=== PATIENT | male | born 1955 | race Caucasian/White ===

== ENCOUNTER 2019-07-08 09:50 | Emergency (ER) | payer OTHER ==
[~2019-07-08] VITALS: Ht 182.9 cm; Wt 75.4 kg
[2019-07-08] MEDS ORDERED: normal saline 1000ML IV soln IVB ONE (10:35)
[2019-07-08] MEDS ORDERED: ondansetron/PF 4mg/2ml inj IV ONE (10:35)
[2019-07-08] MEDS: morphine 4 MG/ML inj SYRINge IV PRN ×2 (10:43→13:39)
[2019-07-08 11:21] LABS: BASOPHILS % (AUTO) 0.1 % (0-1); EOSINOPHILS % (AUTO) 0 % (0-6); HEMATOCRIT 39.9 % (42.0-52.0); HEMOGLOBIN 13.5 g/dl (14.0-17.9); LYMPHOCYTES # (AUTO) 1.1 X10'3 (1.1-4.8); LYMPHOCYTES % (AUTO) 11.4 % (21-51); MEAN CORPUSCULAR HEMOGLOBIN 30.1 PG (27.0-31.0); MEAN CORPUSCULAR HGB CONC 33.8 g/dL (33.0-36.5); MEAN CORPUSCULAR VOLUME 88.9 FL (78-98); MEAN PLATELET VOLUME 8.2 FL (7.4-10.4); MONOCYTES # (AUTO) 1.4 X10'3 (0-0.9); NEUTROPHILS # (AUTO) 7.4 X10'3 (1.8-7.7); NEUTROPHILS % (AUTO) 74.5 % (42-75); PLATELET COUNT 208 X10'3 (140-440); RED BLOOD COUNT 4.49 X10'6 (4.70-6.10); RED CELL DISTRIBUTION WIDTH 15.5 % (11.5-14.5); WHITE BLOOD COUNT 9.9 X10'3 (4.5-11.0)
[2019-07-08 11:33] LABS: ALANINE AMINOTRANSFERASE 110 U/L (12-78); ALBUMIN 3.5 G/DL (3.4-5.0); ALBUMIN/GLOBULIN RATIO 1.1 (1.1-1.5); ALKALINE PHOSPHATASE 79 IU/L (46-116); ANION GAP 11 (8-16); ASPARTATE AMINO TRANSFERASE 83 U/L (10-37); BLOOD UREA NITROGEN 59 MG/DL (7-18); BUN/CREATININE RATIO 34.1 (5.4-32.0); CALCIUM 7.9 MG/DL (8.5-10.1); CHLORIDE 98 MMOL/L (99-107); CREATININE 1.73 MG/DL (0.60-1.10); GLUCOSE 114 MG/DL (70-104); LIPASE 137 U/L (73-393); POTASSIUM 3.1 MMOL/L (3.5-5.1); SODIUM 138 MMOL/L (135-145); TOTAL CARBON DIOXIDE 28.9 MMOL/L (24-32); TOTAL PROTEIN 6.7 G/DL (6.4-8.2); eGFR 40 ML/MIN
[2019-07-08 12:51] LABS: CLARITY,URINE CLEAR (Clear); COLOR,URINE YELLOW (Yellow); GLUCOSE, URINE NEGATIVE (Neg); KETONES,URINE 15 mg/dl (Neg); LEUKOCYTE ESTERASE ,URINE NEGATIVE (Neg); NITRITES, URINE NEGATIVE (Neg); OCCULT BLOOD,URINE NEGATIVE (Neg); PROTEIN,URINE NEGATIVE (Neg)
--- NOTE | 2019-07-08 12:51 | NUR ---
GUY: [phone] (SON)
[2019-07-08 12:54] LABS: UA COLLECTION TYPE URINAL
[2019-07-08 12:56] VITALS: BP 106/64
[2019-07-08] MEDS ORDERED: PANT-47 PO (13:44)
[2019-07-08] MEDS ORDERED: SUCR1TAB34 PO (13:44)
== END 2019-07-08 15:13 | disposition home or self-care (01) ==
LOC: ER 09:51
DX: K44.9 Diaphragmatic hernia without obstruction or gangrene (principal); I71.4 Abdominal aortic aneurysm, without rupture; N17.9 Acute kidney failure, unspecified; E87.6 Hypokalemia; F17.200 Nicotine dependence, unspecified, uncomplicated; Z79.899 Other long term (current) drug therapy
CPT/HCPCS: 36415; 74176; 76700; 80053; 81003; 83690; 85025; 96374; 96375; 96376; 99285; J2270; J2405; J7030

== ENCOUNTER 2019-10-13 13:00 | Emergency (ER) | payer OTHER ==
[~2019-10-13] VITALS: Ht 182.9 cm; Wt 90.0 kg
[~2019-10-13 13:00] MED LIST: PANT-47 PO; SUCR1TAB34 PO
[2019-10-13] MEDS ORDERED: magnesium oxide 400mg tablet PO ONE (13:20)
[2019-10-13] MEDS ORDERED: normal saline 1000ML IV soln IVB ONE (13:20)
[2019-10-13] MEDS ORDERED: thiamine 100mg tablet PO ONE (13:20)
[2019-10-13] MEDS ORDERED: phenobarbital inj 260 MG in normal saline 100ml IV soln 100 ML IV ONE (13:20)
[2019-10-13 13:39] LABS: BASOPHILS % (AUTO) 0.5 % (0-1); EOSINOPHILS # (AUTO) 0.1 X10'3 (0-0.9); EOSINOPHILS % (AUTO) 0.8 % (0-6); HEMATOCRIT 43.5 % (42.0-52.0); HEMOGLOBIN 14.2 g/dl (14.0-17.9); LYMPHOCYTES # (AUTO) 2.6 X10'3 (1.1-4.8); LYMPHOCYTES % (AUTO) 40.7 % (21-51); MEAN CORPUSCULAR HEMOGLOBIN 30.7 PG (27.0-31.0); MEAN CORPUSCULAR HGB CONC 32.7 g/dL (33.0-36.5); MEAN PLATELET VOLUME 7.4 FL (7.4-10.4); MONOCYTES # (AUTO) 0.9 X10'3 (0-0.9); MONOCYTES % (AUTO) 13.2 % (2-12); NEUTROPHILS # (AUTO) 2.9 X10'3 (1.8-7.7); NEUTROPHILS % (AUTO) 44.8 % (42-75); PLATELET COUNT 255 X10'3 (140-440); RED BLOOD COUNT 4.63 X10'6 (4.70-6.10); RED CELL DISTRIBUTION WIDTH 15.8 % (11.5-14.5); WHITE BLOOD COUNT 6.5 X10'3 (4.5-11.0)
[2019-10-13 13:53] LABS: ALANINE AMINOTRANSFERASE 80 U/L (12-78); ALBUMIN 3.5 G/DL (3.4-5.0); ALBUMIN/GLOBULIN RATIO 0.9 (1.1-1.5); ALKALINE PHOSPHATASE 81 IU/L (46-116); ANION GAP 8 (8-16); ASPARTATE AMINO TRANSFERASE 60 U/L (10-37); BILIRUBIN,TOTAL 0.2 MG/DL (0.1-1.0); BLOOD UREA NITROGEN 11 MG/DL (7-18); BUN/CREATININE RATIO 14.3 (5.4-32.0); CALCIUM 8.3 MG/DL (8.5-10.1); CHLORIDE 111 MMOL/L (99-107); CREATININE 0.77 MG/DL (0.60-1.10); GLUCOSE 105 MG/DL (70-104); SODIUM 147 MMOL/L (135-145); TOTAL CARBON DIOXIDE 28.1 MMOL/L (24-32); TOTAL PROTEIN 7.6 G/DL (6.4-8.2); eGFR > 90 ML/MIN
[2019-10-13 13:56] LABS: MAGNESIUM 2.1 MG/DL (1.5-2.4)
[2019-10-13 13:57] LABS: ETHANOL 0.356 GM/DL (0.0-0.010); POTASSIUM 3.8 MMOL/L (3.5-5.1)
[2019-10-13 14:12] LABS: LIPASE 167 U/L (73-393)
--- NOTE | 2019-10-13 15:16 | NUR ---
[facility] for Toradol received.
[2019-10-13] MEDS ORDERED: ketorolac trometh. 30mg/ml inj. IV ONE (18:25)
[2019-10-13 19:21] VITALS: BP 133/90
== END 2019-10-13 19:13 | disposition home or self-care (01) ==
LOC: ER 13:00
DX: F10.129 Alcohol abuse with intoxication, unspecified (principal); T75.89XA Other specified effects of external causes, initial encounter; Z59.0 Homelessness; Z79.899 Other long term (current) drug therapy; X58.XXXA Exposure to other specified factors, initial encounter; Y93.89 Activity, other specified; Y92.89 Other specified places as the place of occurrence of the external cause; Y99.8 Other external cause status; Y90.0 Blood alcohol level of less than 20 mg/100 ml
CPT/HCPCS: 36415; 80053; 80320; 82948; 83690; 83735; 85025; 93005; 96365; 96375; 99284; J1885; J2560; J7030

== ENCOUNTER 2019-12-07 04:31 | Emergency (ER) | payer OTHER ==
[~2019-12-07] VITALS: Ht 185.4 cm; Wt 86.4 kg
[2019-12-07 05:02] LABS: BASOPHILS % (AUTO) 0.4 % (0-1); EOSINOPHILS % (AUTO) 0.3 % (0-6); HEMATOCRIT 41.8 % (42.0-52.0); HEMOGLOBIN 13.8 g/dl (14.0-17.9); LYMPHOCYTES # (AUTO) 1.9 X10'3 (1.1-4.8); LYMPHOCYTES % (AUTO) 28.7 % (21-51); MEAN CORPUSCULAR HEMOGLOBIN 30.8 PG (27.0-31.0); MEAN CORPUSCULAR VOLUME 93.4 FL (78-98); MEAN PLATELET VOLUME 8.2 FL (7.4-10.4); MONOCYTES # (AUTO) 0.7 X10'3 (0-0.9); MONOCYTES % (AUTO) 11.2 % (2-12); NEUTROPHILS # (AUTO) 3.9 X10'3 (1.8-7.7); NEUTROPHILS % (AUTO) 59.4 % (42-75); PLATELET COUNT 188 X10'3 (140-440); RED BLOOD COUNT 4.48 X10'6 (4.70-6.10); RED CELL DISTRIBUTION WIDTH 13.2 % (11.5-14.5); WHITE BLOOD COUNT 6.6 X10'3 (4.5-11.0)
[2019-12-07 05:26] LABS: ALANINE AMINOTRANSFERASE 201 U/L (12-78); ALBUMIN 3.6 G/DL (3.4-5.0); ALKALINE PHOSPHATASE 94 IU/L (46-116); ANION GAP 16 (8-16); ASPARTATE AMINO TRANSFERASE 176 U/L (10-37); BILIRUBIN,TOTAL 1.8 MG/DL (0.1-1.0); BLOOD UREA NITROGEN 15 MG/DL (7-18); BUN/CREATININE RATIO 13.6 (5.4-32.0); CALCIUM 8.3 MG/DL (8.5-10.1); CHLORIDE 102 MMOL/L (99-107); GLUCOSE 110 MG/DL (70-104); LIPASE 106 U/L (73-393); POTASSIUM 3.3 MMOL/L (3.5-5.1); SODIUM 139 MMOL/L (135-145); TOTAL CARBON DIOXIDE 20.9 MMOL/L (24-32); TOTAL PROTEIN 7.2 G/DL (6.4-8.2); eGFR 68 ML/MIN
[2019-12-07] MEDS ORDERED: glycopyrrolate 0.2mg/ml inj IV ONE (05:30)
[2019-12-07] MEDS ORDERED: diphenhydrAMINE 50 mg/ml inj IV ONE (05:30)
[2019-12-07] MEDS ORDERED: metoclopramide 5 mg/ml inj IV ONE (05:30)
[2019-12-07] MEDS ORDERED: LORazepam 2 mg/ml vial IV ONE (05:30)
[2019-12-07] MEDS ORDERED: normal saline 1000ML IV soln IVB ONE (05:30)
[2019-12-07] MEDS ORDERED: LOPE-144 PO (05:43)
[2019-12-07] MEDS ORDERED: ONDA4TAB12 PO (05:43)
[2019-12-07] MEDS ORDERED: DICY10CA88 PO (05:43)
[2019-12-07] MEDS ORDERED: iohexol 300mg/ml 100ml inj. ONE (06:07)
[2019-12-07 06:50] VITALS: BP 106/57
== END 2019-12-07 07:52 | disposition home or self-care (01) ==
LOC: ER 04:32
DX: R51 Headache (principal); I71.4 Abdominal aortic aneurysm, without rupture; R10.9 Unspecified abdominal pain; R11.10 Vomiting, unspecified; R19.7 Diarrhea, unspecified; F10.10 Alcohol abuse, uncomplicated; Z79.899 Other long term (current) drug therapy
CPT/HCPCS: 36415; 74177; 80053; 83690; 85025; 96374; 96375; 99285; J1200; J2060; J2765; J7030; Q9967; J3490

== ENCOUNTER 2022-06-06 14:30 | Emergency (ER) | payer OTHER ==
[~2022-06-06] VITALS: Ht 182.9 cm; Wt 81.8 kg
[~2022-06-06 14:30] MED LIST changes: +LOPE-144 PO; +ONDA4TAB12 PO
--- NOTE | 2022-06-06 15:16 | NUR ---
Met with patient in regards to alcohol use and to see if patient wanted any resources for treatment options. Patient has an appointment with Kisha tomorrow at 9:00am. Patient is here for medical clearance to get medication to help him with withdrawls.
--- NOTE | 2022-06-06 15:44 | NUR ---
Donnell complaining of wound to his nose x 4 months. Patient states, "It's from a dog. It hasnt gone away".
[2022-06-06] MEDS ORDERED: LORazepam 1 MG tablet PO ONE (16:15)
[2022-06-06] MEDS ORDERED: ondansetron 4mg rapidly disintigrating tab PO ONE (16:15)
[2022-06-06] MEDS ORDERED: normal saline 1000ML IV soln IVB ONE (16:15)
--- NOTE | 2022-06-06 16:23 | NUR ---
Cooper/ Friend [phone]
[2022-06-06 16:52] LABS: BASOPHILS % (AUTO) 0.3 % (0-1); EOSINOPHILS % (AUTO) 0 % (0-6); HEMATOCRIT 40.5 % (42.0-52.0); HEMOGLOBIN 13.3 g/dl (14.0-17.9); LYMPHOCYTES # (AUTO) 0.5 X10'3 (1.1-4.8); LYMPHOCYTES % (AUTO) 4.2 % (21-51); MEAN CORPUSCULAR HGB CONC 32.8 g/dL (33.0-36.5); MEAN CORPUSCULAR VOLUME 88.3 FL (78-98); MEAN PLATELET VOLUME 7.7 FL (7.4-10.4); MONOCYTES # (AUTO) 0.5 X10'3 (0-0.9); MONOCYTES % (AUTO) 4.1 % (2-12); NEUTROPHILS # (AUTO) 11.5 X10'3 (1.8-7.7); NEUTROPHILS % (AUTO) 91.4 % (42-75); PLATELET COUNT 159 X10'3 (140-440); RED BLOOD COUNT 4.59 X10'6 (4.70-6.10); RED CELL DISTRIBUTION WIDTH 14.2 % (11.5-14.5); WHITE BLOOD COUNT 12.6 X10'3 (4.5-11.0)
[2022-06-06] MEDS ORDERED: GABA300C PO ×3 (16:58→19:18)
[2022-06-06 17:07] LABS: ALANINE AMINOTRANSFERASE 62 U/L (12-78); ALBUMIN 3.6 G/DL (3.4-5.0); ALBUMIN/GLOBULIN RATIO 1.1 (1.1-1.5); ALKALINE PHOSPHATASE 128 IU/L (46-116); ANION GAP 13 (8-16); ASPARTATE AMINO TRANSFERASE 87 U/L (10-37); BILIRUBIN,TOTAL 2.1 MG/DL (0.1-1.0); BLOOD UREA NITROGEN 22 MG/DL (7-18); BUN/CREATININE RATIO 18.8 (5.4-32.0); CALCIUM 8.2 MG/DL (8.5-10.1); CHLORIDE 96 MMOL/L (99-107); CREATININE 1.17 MG/DL (0.60-1.10); GLUCOSE 166 MG/DL (70-104); POTASSIUM 3.5 MMOL/L (3.5-5.1); SODIUM 137 MMOL/L (135-145); TOTAL CARBON DIOXIDE 27.8 MMOL/L (24-32); eGFR 63 ML/MIN
[2022-06-06 17:11] LABS: LIPASE 126 U/L (73-393)
[2022-06-06 17:45] LABS: GLUCOSE, URINE NEGATIVE (Neg); KETONES,URINE 40 mg/dl (Neg); LEUKOCYTE ESTERASE ,URINE NEGATIVE (Neg); NITRITES, URINE NEGATIVE (Neg); OCCULT BLOOD,URINE NEGATIVE (Neg); PROTEIN,URINE 30 mg/dl (Neg)
[2022-06-06 17:51] LABS: COLOR,URINE DARK YELLOW (Yellow); UA COLLECTION TYPE URINAL
[2022-06-06 17:52] LABS: CLARITY,URINE SLIGHTLY CLOUDY (Clear)
[2022-06-06 17:55] LABS: WBC,URINE 0-4 /HPF (0-4)
[2022-06-06 17:56] LABS: BACTERIA,URINE FEW /HPF (Neg); FINE GRANULAR CAST 0-3 /LPF (NEGATIVE); MUCUS STRANDS FEW /LPF (Neg); SQUAMOUS EPITHELIAL CELL,UR FEW /LPF (FEW)
[2022-06-06 18:02] LABS: URINE AMPHETAMINE SCREEN NEGATIVE (Neg); URINE BARBITUATE SCREEN NEGATIVE (Neg); URINE BENZODIAZEPINES SCREEN NEGATIVE (Neg); URINE CANNABINOID SCREEN POSITIVE (Neg); URINE COCAINE SCREEN NEGATIVE (Neg); URINE METHADONE SCREEN NEGATIVE (Neg); URINE OPIATE SCREEN NEGATIVE (Neg); URINE PHENCYCLIDINE SCREEN NEGATIVE (Neg)
[2022-06-06 18:55] VITALS: BP 146/76
== END 2022-06-06 19:22 | disposition home or self-care (01) ==
LOC: ER 14:31
DX: F10.239 Alcohol dependence with withdrawal, unspecified (principal); M54.50 Low back pain, unspecified; F10.21 Alcohol dependence, in remission; Y90.9 Presence of alcohol in blood, level not specified
CPT/HCPCS: 36415; 72100; 80053; 80305; 81001; 83690; 84484; 85025; 93005; 99285; J7030

== ENCOUNTER 2024-06-23 15:00 | Inpatient (IN) | payer OTHER, MEDICARE ==
[~2024-06-23] VITALS: Ht 182.9 cm; Wt 83.9 kg
[~2024-06-23 15:00] MED LIST changes: +AMIT50TA3 PO; -LOPE-144 PO; -ONDA4TAB12 PO; -PANT-47 PO; -SUCR1TAB34 PO
[2024-06-23 23:00] VITALS: BP 134/64; PULSE 85; O2SAT 96
[2024-06-24] VITALS (13 sets, daily range): BP systolic 119–155; BP diastolic 63–86; PULSE 75–91; RESP 13–26; TEMP 97.6–100.7; O2SAT 95–98
[2024-06-24] MEDS: amitriptyline 50mg tablet PO SCH (03:06)
[2024-06-24 04:27] LABS: BASOPHILS % (AUTO) 0.2 % (0-1); EOSINOPHILS % (AUTO) 0.2 % (0-6); HEMATOCRIT 34.5 % (42.0-52.0); HEMOGLOBIN 11.2 g/dl (14.0-17.9); LYMPHOCYTES # (AUTO) 1.9 X10'3 (1.1-4.8); LYMPHOCYTES % (AUTO) 12.5 % (21-51); MEAN CORPUSCULAR HEMOGLOBIN 27.6 PG (27.0-31.0); MEAN CORPUSCULAR HGB CONC 32.6 g/dL (33.0-36.5); MEAN CORPUSCULAR VOLUME 84.7 FL (78-98); MEAN PLATELET VOLUME 8.5 FL (7.4-10.4); MONOCYTES # (AUTO) 1.2 X10'3 (0-0.9); MONOCYTES % (AUTO) 7.8 % (2-12); NEUTROPHILS # (AUTO) 11.9 X10'3 (1.8-7.7); NEUTROPHILS % (AUTO) 79.3 % (42-75); PLATELET COUNT 372 X10'3 (140-440); RED BLOOD COUNT 4.08 X10'6 (4.70-6.10); RED CELL DISTRIBUTION WIDTH 13.7 % (11.5-14.5)
[2024-06-24 04:40] LABS: ALANINE AMINOTRANSFERASE 53 U/L (12-78); ALBUMIN 2.6 G/DL (3.4-5.0); ALBUMIN/GLOBULIN RATIO 0.7 (1.1-1.5); ALKALINE PHOSPHATASE 158 IU/L (46-116); ANION GAP 6 (8-16); ASPARTATE AMINO TRANSFERASE 28 U/L (10-37); BILIRUBIN,TOTAL 0.4 MG/DL (0.1-1.0); BLOOD UREA NITROGEN 20 MG/DL (7-18); CHLORIDE 100 MMOL/L (99-107); CREATININE 0.91 MG/DL (0.60-1.10); GLUCOSE 129 MG/DL (70-104); POTASSIUM 3.6 MMOL/L (3.5-5.1); SODIUM 136 MMOL/L (135-145); TOTAL CARBON DIOXIDE 30.5 MMOL/L (24-32); TOTAL PROTEIN 6.4 G/DL (6.4-8.2); eCRCL 88 ML/MIN; eGFR 83 ML/MIN
[2024-06-24] MEDS ORDERED: ASPI-920 PO (08:38)
[2024-06-24] MEDS ORDERED: FOLI1TAB27 PO (08:38)
[2024-06-24] MEDS ORDERED: AMLO10TA PO (08:38)
[2024-06-24] MEDS ORDERED: ENOX40DI8 SUBCUT (08:38)
[2024-06-24] MEDS ORDERED: ATOR20TA66 PO (08:38)
[2024-06-24] MEDS ORDERED: INSU100V46 SQ ×3 (08:43→09:12)
[2024-06-24] MEDS ORDERED: HYDR12.55 PO (08:43)
[2024-06-24] MEDS ORDERED: GABA-530 PO (08:43)
[2024-06-24] MEDS ORDERED: [UNRECOGNIZED DRUG - CODE] PO (08:50)
[2024-06-24] MEDS ORDERED: LABE100T8 PO (08:50)
[2024-06-24] MEDS ORDERED: LISI40TA13 PO (08:50)
[2024-06-24] MEDS ORDERED: NICO-687 TD (08:50)
[2024-06-24] MEDS ORDERED: MELA5CAP PO (08:50)
[2024-06-24] MEDS ORDERED: PANT40SU2 PO (08:50)
[2024-06-24] MEDS ORDERED: SENN-360 PO (08:57)
[2024-06-24] MEDS ORDERED: THIA50TA10 PO (08:57)
[2024-06-24] MEDS ORDERED: PANT40VI2 IV (08:57)
[2024-06-24] MEDS ORDERED: BISA10SU60 RC (09:12)
[2024-06-24] MEDS ORDERED: LABE5VIA IV (09:12)
[2024-06-24] MEDS ORDERED: ONDA-103 PO (09:12)
[2024-06-24] MEDS ORDERED: ACET-1131 PO (09:12)
[2024-06-24] MEDS ORDERED: CARB15DR EACHEYE (09:12)
[2024-06-24] MEDS ORDERED: IPRA3AMP31 IH (09:12)
[2024-06-24] MEDS ORDERED: NICO-668 MM (09:12)
[2024-06-24] MEDS ORDERED: ondansetron/PF 4mg/2ml inj IV PRN ×2 (09:50→19:35)
[2024-06-24] MEDS ORDERED: magnesium sulf-water 2g/50mL 50 ML IV PRN ×2 (09:50→19:35)
[2024-06-24] MEDS ORDERED: acetaminophen 325mg tablet PO PRN ×2 (09:50→19:35)
[2024-06-24] MEDS ORDERED: potassium Cl 20 mEq SR tablet PO PRN ×4 (09:50→19:35)
[2024-06-24] MEDS ORDERED: magnesium Cl slow-release 64mg tablet PO PRN ×2 (09:50→19:35)
[2024-06-24] MEDS ORDERED: magnesium hydroxide 30ml (MOM) UD suspension PO PRN ×2 (09:50→19:35)
[2024-06-24] MEDS ORDERED: potassium Cl 40MEQ/1/2NS 520ml 520 ML IV PRN ×2 (09:50→19:35)
[2024-06-24] MEDS ORDERED: magnesium sulf-water 4G/100mL 100 ML IV PRN ×2 (09:50→19:35)
[2024-06-24] MEDS: acetaminophen 325mg tablet PO PRN (17:09)
[2024-06-24] MEDS ORDERED: mag hydrox/Alum hydrox/simeth 30ml oral suspension PO PRN (19:35)
[2024-06-24] MEDS ORDERED: morphine 2 MG/ML inj. syringe IV PRN (19:35)
[2024-06-24] MEDS ORDERED: NICOTINE POLACRILEX 2 MG LOZENGE BC PRN (19:40)
[2024-06-24] MEDS ORDERED: K and/or MAG REPLACEMENT MC SCH (20:00)
[2024-06-24] MEDS ORDERED: heparin, porcine 5000 units/ml vial SQ SCH (20:00)
[2024-06-24] MEDS: K and/or MAG REPLACEMENT MC SCH (20:00)
[2024-06-24 20:36] LABS: HEMOGLOBIN A1C 6.1 % (4.5-6.2)
[2024-06-24] MEDS ORDERED: amitriptyline 50mg tablet PO SCH (21:00)
[2024-06-24] MEDS: Melatonin 3mg tablet PO SCH (21:20)
[2024-06-24] MEDS: gabapentin 100mg capsule PO SCH (21:21)
[2024-06-24] MEDS: labetalol 100mg tablet PO SCH (21:21)
[2024-06-24] MEDS: docusate sod 100mg capsule PO SCH (21:22)
[2024-06-25 06:00] VITALS: BP 108/55; PULSE 79; RESP 12; TEMP 99; O2SAT 94
[2024-06-25 07:43] LABS: BASOPHILS % (AUTO) 0.1 % (0-1); EOSINOPHILS # (AUTO) 0.1 X10'3 (0-0.9); EOSINOPHILS % (AUTO) 0.4 % (0-6); HEMOGLOBIN 10.5 g/dl (14.0-17.9); LYMPHOCYTES % (AUTO) 5.6 % (21-51); MEAN CORPUSCULAR HEMOGLOBIN 27.8 PG (27.0-31.0); MEAN CORPUSCULAR HGB CONC 32.7 g/dL (33.0-36.5); MEAN PLATELET VOLUME 8.8 FL (7.4-10.4); MONOCYTES # (AUTO) 1.7 X10'3 (0-0.9); MONOCYTES % (AUTO) 9.6 % (2-12); NEUTROPHILS # (AUTO) 14.6 X10'3 (1.8-7.7); NEUTROPHILS % (AUTO) 84.3 % (42-75); PLATELET COUNT 292 X10'3 (140-440); RED BLOOD COUNT 3.77 X10'6 (4.70-6.10); RED CELL DISTRIBUTION WIDTH 13.7 % (11.5-14.5); WHITE BLOOD COUNT 17.3 X10'3 (4.5-11.0)
[2024-06-25 08:00] VITALS: RESP 12; O2SAT 94
[2024-06-25 08:13] LABS: ALANINE AMINOTRANSFERASE 42 U/L (12-78); ALBUMIN 2.4 G/DL (3.4-5.0); ALBUMIN/GLOBULIN RATIO 0.7 (1.1-1.5); ALKALINE PHOSPHATASE 126 IU/L (46-116); ANION GAP 6 (8-16); ASPARTATE AMINO TRANSFERASE 25 U/L (10-37); BILIRUBIN,TOTAL 0.7 MG/DL (0.1-1.0); BLOOD UREA NITROGEN 13 MG/DL (7-18); BUN/CREATININE RATIO 14.1 (10.0-20.0); CALCIUM 7.8 MG/DL (8.5-10.1); CHLORIDE 101 MMOL/L (99-107); CREATININE 0.92 MG/DL (0.60-1.10); GLUCOSE 178 MG/DL (70-104); MAGNESIUM 1.7 MG/DL (1.5-2.4); POTASSIUM 3.7 MMOL/L (3.5-5.1); SODIUM 136 MMOL/L (135-145); TOTAL CARBON DIOXIDE 28.8 MMOL/L (24-32); TOTAL PROTEIN 5.9 G/DL (6.4-8.2); eCRCL 87 ML/MIN; eGFR 82 ML/MIN
[2024-06-25] MEDS: amLODIPine 5mg tablet PO SCH (08:56)
[2024-06-25] MEDS: lisinopril 20mg tablet PO SCH (08:57)
[2024-06-25] MEDS: atorvastatin 20mg tablet PO SCH (08:57)
[2024-06-25] MEDS: aspirin 81mg tab.chew PO SCH (08:58)
[2024-06-25] MEDS: HYDROchlorothiazide 12.5mg capsule PO SCH (08:58)
[2024-06-25] MEDS: multivitamins, therapeutics tablet PO SCH (08:58)
[2024-06-25] MEDS: folic acid 1mg tablet PO SCH (08:59)
[2024-06-25] MEDS: nicotine 21mg patch - 24 hr TD SCH (09:02)
[2024-06-25 10:00] VITALS: BP 132/51; PULSE 70; RESP 18; TEMP 97.5; O2SAT 99
[2024-06-25] MEDS: normal saline 1000ml 1,000 ML IV ONE (11:25)
[2024-06-25 12:39] LABS: BILIRUBIN,URINE NEGATIVE (Neg); CLARITY,URINE CLEAR (Clear); COLOR,URINE YELLOW (Yellow); GLUCOSE, URINE NEGATIVE (Neg); KETONES,URINE NEGATIVE (Neg); LEUKOCYTE ESTERASE ,URINE NEGATIVE (Neg); NITRITES, URINE NEGATIVE (Neg); OCCULT BLOOD,URINE NEGATIVE (Neg); PROTEIN,URINE NEGATIVE (Neg)
[2024-06-25 12:45] LABS: UA COLLECTION TYPE NON-SPECIFIED
[2024-06-25] MEDS: normal saline 1000ml 1,000 ML IVB ONE ×2 (13:09→15:31)
[2024-06-25 13:48] LABS: D-DIMER 3.89 MG/L FEU (0-0.50)
[2024-06-25] MEDS: CefTRIAXone/D5W-Rocephin 1gm 50 ML IV SCH (13:55)
[2024-06-25] MEDS: clindamycin 300mg/D5W 50mL 50 ML IV SCH (15:31)
[2024-06-25] MEDS ORDERED: iohexol 350MG/ML 100ml bottle IV ONE (16:32)
[2024-06-25] MEDS ORDERED: PERFLUTREN PROTEIN-A MICROSPHR (Optison) 0.22 MG/ML 3ML VIAL IV ONE (17:30)
[2024-06-25 18:00] VITALS: BP 120/56; PULSE 77; RESP 18; TEMP 99.3; O2SAT 93
[2024-06-25] MEDS ORDERED: atorvastatin 20mg tablet PO SCH (18:25)
[2024-06-25 20:00] VITALS: RESP 18; O2SAT 96
[2024-06-25 22:00] VITALS: BP 108/43; PULSE 70; RESP 16; TEMP 99.1; O2SAT 96
[2024-06-25] MEDS ORDERED: PERFLUTREN PROTEIN-A MICROSPHR (Optison) 0.22 MG/ML 3ML VIAL IV PRN (22:45)
[2024-06-26 05:02] LABS: BASOPHILS % (AUTO) 0.1 % (0-1); EOSINOPHILS # (AUTO) 0.2 X10'3 (0-0.9); EOSINOPHILS % (AUTO) 1.1 % (0-6); HEMATOCRIT 28.7 % (42.0-52.0); HEMOGLOBIN 9.3 g/dl (14.0-17.9); LYMPHOCYTES # (AUTO) 0.8 X10'3 (1.1-4.8); LYMPHOCYTES % (AUTO) 4.8 % (21-51); MEAN CORPUSCULAR HEMOGLOBIN 27.4 PG (27.0-31.0); MEAN CORPUSCULAR HGB CONC 32.4 g/dL (33.0-36.5); MEAN CORPUSCULAR VOLUME 84.7 FL (78-98); MEAN PLATELET VOLUME 8.8 FL (7.4-10.4); MONOCYTES # (AUTO) 1.8 X10'3 (0-0.9); MONOCYTES % (AUTO) 10.4 % (2-12); NEUTROPHILS # (AUTO) 14.4 X10'3 (1.8-7.7); NEUTROPHILS % (AUTO) 83.6 % (42-75); PLATELET COUNT 272 X10'3 (140-440); RED BLOOD COUNT 3.39 X10'6 (4.70-6.10); RED CELL DISTRIBUTION WIDTH 14.2 % (11.5-14.5); WHITE BLOOD COUNT 17.2 X10'3 (4.5-11.0)
[2024-06-26 05:21] LABS: ALANINE AMINOTRANSFERASE 34 U/L (12-78); ALBUMIN 2.2 G/DL (3.4-5.0); ALBUMIN/GLOBULIN RATIO 0.6 (1.1-1.5); ALKALINE PHOSPHATASE 112 IU/L (46-116); ANION GAP 5 (8-16); ASPARTATE AMINO TRANSFERASE 21 U/L (10-37); BILIRUBIN,TOTAL 0.6 MG/DL (0.1-1.0); BLOOD UREA NITROGEN 9 MG/DL (7-18); CALCIUM 7.7 MG/DL (8.5-10.1); CHLORIDE 104 MMOL/L (99-107); CREATININE 0.82 MG/DL (0.60-1.10); GLUCOSE 125 MG/DL (70-104); MAGNESIUM 1.7 MG/DL (1.5-2.4); POTASSIUM 4.1 MMOL/L (3.5-5.1); SODIUM 138 MMOL/L (135-145); TOTAL CARBON DIOXIDE 28.7 MMOL/L (24-32); TOTAL PROTEIN 5.8 G/DL (6.4-8.2); eCRCL 97 ML/MIN; eGFR > 90 ML/MIN
[2024-06-26 06:00] VITALS: BP 125/44; PULSE 72; RESP 16; TEMP 98.6; O2SAT 96
[2024-06-26 09:01] LABS: C-REACTIVE PROTEIN 15.81 MG/DL (0.0-0.5)
[2024-06-26 10:00] VITALS: BP 118/57; PULSE 78; RESP 14; TEMP 98.7; O2SAT 94
[2024-06-26 11:05] LABS: D-DIMER 3.01 MG/L FEU (0-0.50)
[2024-06-26 11:45] VITALS: RESP 18; O2SAT 96
[2024-06-26] MEDS: HYDROcodone/acetaminophen 5mg/325mg tablet PO PRN (14:59)
[2024-06-26 18:00] VITALS: BP 112/63; PULSE 76; RESP 18; TEMP 98.1; O2SAT 94
[2024-06-26 20:00] VITALS: RESP 18; O2SAT 95
[2024-06-26] MEDS: oxyCODONE SR 10mg (sust. release) tab PO SCH (20:28)
[2024-06-26 22:00] VITALS: BP 112/53; PULSE 73; RESP 18; TEMP 98; O2SAT 98
[2024-06-27 05:01] LABS: BASOPHILS % (AUTO) 0.2 % (0-1); EOSINOPHILS # (AUTO) 0.2 X10'3 (0-0.9); EOSINOPHILS % (AUTO) 1.3 % (0-6); HEMATOCRIT 26.2 % (42.0-52.0); HEMOGLOBIN 8.6 g/dl (14.0-17.9); LYMPHOCYTES # (AUTO) 1.3 X10'3 (1.1-4.8); LYMPHOCYTES % (AUTO) 9.3 % (21-51); MEAN CORPUSCULAR HEMOGLOBIN 27.6 PG (27.0-31.0); MEAN CORPUSCULAR HGB CONC 32.8 g/dL (33.0-36.5); MEAN CORPUSCULAR VOLUME 84.1 FL (78-98); MEAN PLATELET VOLUME 8.9 FL (7.4-10.4); MONOCYTES # (AUTO) 1.9 X10'3 (0-0.9); MONOCYTES % (AUTO) 14.3 % (2-12); NEUTROPHILS # (AUTO) 10.1 X10'3 (1.8-7.7); NEUTROPHILS % (AUTO) 74.9 % (42-75); PLATELET COUNT 273 X10'3 (140-440); RED BLOOD COUNT 3.11 X10'6 (4.70-6.10); RED CELL DISTRIBUTION WIDTH 14.2 % (11.5-14.5); WHITE BLOOD COUNT 13.5 X10'3 (4.5-11.0)
[2024-06-27 05:28] LABS: ALANINE AMINOTRANSFERASE 41 U/L (12-78); ALBUMIN 2.1 G/DL (3.4-5.0); ALBUMIN/GLOBULIN RATIO 0.5 (1.1-1.5); ALKALINE PHOSPHATASE 114 IU/L (46-116); ANION GAP 7 (8-16); ASPARTATE AMINO TRANSFERASE 26 U/L (10-37); BILIRUBIN,TOTAL 0.4 MG/DL (0.1-1.0); BLOOD UREA NITROGEN 11 MG/DL (7-18); BUN/CREATININE RATIO 11.3 (10.0-20.0); C-REACTIVE PROTEIN 18.58 MG/DL (0.0-0.5); CALCIUM 7.6 MG/DL (8.5-10.1); CHLORIDE 102 MMOL/L (99-107); CREATININE 0.97 MG/DL (0.60-1.10); GLUCOSE 137 MG/DL (70-104); MAGNESIUM 1.7 MG/DL (1.5-2.4); POTASSIUM 3.5 MMOL/L (3.5-5.1); SODIUM 137 MMOL/L (135-145); TOTAL CARBON DIOXIDE 28.5 MMOL/L (24-32); eCRCL 82 ML/MIN; eGFR 77 ML/MIN
[2024-06-27 06:00] VITALS: BP 107/51; PULSE 71; RESP 16; TEMP 98.9; O2SAT 99
[2024-06-27] MEDS ORDERED: CEPH250T PO (07:26)
[2024-06-27] MEDS ORDERED: LACT1CAP26 PO (10:42)
[2024-06-27] MEDS ORDERED: PANT40TA54 PO (10:48)
[2024-06-27] MEDS ORDERED: CLIN-232 PO (10:56)
[2024-06-27 11:52] VITALS: RESP 18; O2SAT 95
== END 2024-06-27 14:57 | disposition home or self-care (01) | DRG 871 ==
LOC: CICU 2S 15:00 → SUR 3N 06-24 11:12
PROVIDERS: ADMIT Internal Medicine Critical Care Medicine; ATTEND Internal Medicine Critical Care Medicine
PROC: B32T1ZZ Computerized Tomography (CT Scan) of Left Pulmonary Artery using Low Osmolar Contrast (ICD-10-PCS; principal; 2024-06-25)
PROC: B3201ZZ Computerized Tomography (CT Scan) of Thoracic Aorta using Low Osmolar Contrast (ICD-10-PCS; 2024-06-25)
PROC: B32S1ZZ Computerized Tomography (CT Scan) of Right Pulmonary Artery using Low Osmolar Contrast (ICD-10-PCS; 2024-06-25)
DX: A41.9 Sepsis, unspecified organism (principal); J12.82 Pneumonia due to coronavirus disease 2019; U07.1 COVID-19; L03.818 Cellulitis of other sites; F32.A Depression, unspecified; F41.9 Anxiety disorder, unspecified; R73.03 Prediabetes; I80.8 Phlebitis and thrombophlebitis of other sites; I71.43 Infrarenal abdominal aortic aneurysm, without rupture; Z79.899 Other long term (current) drug therapy; Z79.4 Long term (current) use of insulin
CPT/HCPCS: 36415; 71045; 71275; 80053; 81003; 83036; 83605; 83735; 84145; 85025; 85379; 86140; 87040; 87045; 87046; 87081; 87502; 87503; 87811; 89055; 93308; 93930; 93970; A6250; G0378; J0696; J3490; J7030; Q9967

== ENCOUNTER 2024-07-12 13:35 | Emergency (ER) | payer OTHER, MEDICARE ==
[~2024-07-12] VITALS: Ht 182.9 cm; Wt 82.5 kg
[~2024-07-12 13:35] MED LIST changes: +ACET-1131 PO; +AMLO10TA PO; +ASPI-920 PO; +ATOR20TA66 PO; +BISA10SU60 RC; +CARB15DR EACHEYE; +FOLI1TAB27 PO; +GABA-530 PO; +HYDR12.55 PO; +INSU100V46 SQ; +IPRA3AMP31 IH; +LABE100T8 PO; +LACT1CAP26 PO; +LISI40TA13 PO; +MELA5CAP PO; +NICO-668 MM; +NICO-687 TD; +ONDA-103 PO; +PANT40TA54 PO; +SENN-360 PO; +THIA50TA10 PO; +[UNRECOGNIZED DRUG - CODE] PO
[2024-07-12 13:36] VITALS: TEMP 98.7
[2024-07-12 14:10] LABS: BASOPHILS % (AUTO) 0.5 % (0-1); EOSINOPHILS # (AUTO) 0.1 X10'3 (0-0.9); EOSINOPHILS % (AUTO) 1.2 % (0-6); HEMATOCRIT 35.9 % (42.0-52.0); HEMOGLOBIN 11.5 g/dl (14.0-17.9); LYMPHOCYTES # (AUTO) 1.9 X10'3 (1.1-4.8); LYMPHOCYTES % (AUTO) 24.2 % (21-51); MEAN CORPUSCULAR HEMOGLOBIN 27.2 PG (27.0-31.0); MEAN CORPUSCULAR VOLUME 84.9 FL (78-98); MEAN PLATELET VOLUME 7.7 FL (7.4-10.4); MONOCYTES # (AUTO) 0.8 X10'3 (0-0.9); MONOCYTES % (AUTO) 10.6 % (2-12); NEUTROPHILS # (AUTO) 4.9 X10'3 (1.8-7.7); NEUTROPHILS % (AUTO) 63.5 % (42-75); PLATELET COUNT 513 X10'3 (140-440); RED BLOOD COUNT 4.23 X10'6 (4.70-6.10); RED CELL DISTRIBUTION WIDTH 13.9 % (11.5-14.5); WHITE BLOOD COUNT 7.7 X10'3 (4.5-11.0)
[2024-07-12 14:25] LABS: ALBUMIN 3.4 G/DL (3.4-5.0); ANION GAP 11 (8-16); BLOOD UREA NITROGEN 17 MG/DL (7-18); BUN/CREATININE RATIO 13.5 (10.0-20.0); CALCIUM 8.7 MG/DL (8.5-10.1); CHLORIDE 103 MMOL/L (99-107); CREATININE 1.26 MG/DL (0.60-1.10); GLUCOSE 140 MG/DL (70-104); POTASSIUM 3.8 MMOL/L (3.5-5.1); SODIUM 142 MMOL/L (135-145); eCRCL 63 ML/MIN; eGFR 57 ML/MIN
[2024-07-12 14:43] LABS: ALANINE AMINOTRANSFERASE 34 U/L (12-78); ALBUMIN/GLOBULIN RATIO 0.9 (1.1-1.5); ALKALINE PHOSPHATASE 204 IU/L (46-116); ASPARTATE AMINO TRANSFERASE 17 U/L (10-37); BILIRUBIN,DIRECT 0.2 MG/DL (0-0.3); BILIRUBIN,TOTAL 0.6 MG/DL (0.1-1.0); ETHANOL < 10 MG/DL (<10); TOTAL PROTEIN 7.4 G/DL (6.4-8.2)
[2024-07-12 14:53] LABS: BILIRUBIN,URINE NEGATIVE (Neg); CLARITY,URINE CLEAR (Clear); COLOR,URINE YELLOW (Yellow); GLUCOSE, URINE NEGATIVE (Neg); KETONES,URINE NEGATIVE (Neg); LEUKOCYTE ESTERASE ,URINE TRACE (Neg); NITRITES, URINE NEGATIVE (Neg); OCCULT BLOOD,URINE NEGATIVE (Neg); PROTEIN,URINE TRACE mg/dl (Neg); UROBILINOGEN,URINE 0.2 E.U/dL (0.2-1.0)
[2024-07-12 14:55] LABS: UA COLLECTION TYPE CLN CATCH MIDSTREAM
[2024-07-12 15:00] LABS: BACTERIA,URINE 1+ /HPF (Neg); WBC,URINE 30-50 /HPF (0-4)
[2024-07-12 15:01] LABS: MUCUS STRANDS FEW /LPF (Neg); SQUAMOUS EPITHELIAL CELL,UR FEW /LPF (FEW)
[2024-07-12 15:09] LABS: URINE AMPHETAMINE SCREEN NEGATIVE (Neg); URINE BARBITUATE SCREEN NEGATIVE (Neg); URINE BENZODIAZEPINES SCREEN NEGATIVE (Neg); URINE CANNABINOID SCREEN POSITIVE (Neg); URINE COCAINE SCREEN NEGATIVE (Neg); URINE METHADONE SCREEN NEGATIVE (Neg); URINE OPIATE SCREEN NEGATIVE (Neg); URINE PHENCYCLIDINE SCREEN NEGATIVE (Neg)
[2024-07-12] MEDS: normal saline 1000ml 1,000 ML IV ONE ×2 (15:24→16:48)
[2024-07-12] MEDS: CefTRIAXone/D5W-Rocephin 1gm 50 ML IV ONE (16:22)
[2024-07-12 18:00] VITALS: BP 156/92; PULSE 79; RESP 16; O2SAT 96
[2024-07-12] MEDS ORDERED: NITR100C6 PO (18:15)
== END 2024-07-12 18:57 | disposition home or self-care (01) ==
LOC: ER 13:36
DX: N39.0 Urinary tract infection, site not specified (principal); I95.1 Orthostatic hypotension; R41.82 Altered mental status, unspecified
CPT/HCPCS: 36415; 70450; 71045; 80048; 80076; 80305; 80320; 81001; 82140; 83605; 84145; 85025; 87040; 87088; 93005; 96361; 96365; 99285; J0696; J7030; A4615

== ENCOUNTER 2024-07-18 17:10 | Emergency (ER) | payer OTHER, MEDICARE ==
[~2024-07-18] VITALS: Ht 182.9 cm; Wt 84.1 kg
[~2024-07-18 17:10] MED LIST changes: +NITR100C6 PO
[2024-07-18 21:37] VITALS: BP 136/74; PULSE 94; RESP 16; TEMP 98.2; O2SAT 95
== END 2024-07-18 22:25 ==
LOC: ER 17:11
DX: F03.90 Unspecified dementia, unspecified severity, without behavioral disturbance, psychotic disturbance, mood disturbance, and anxiety (principal); Z79.899 Other long term (current) drug therapy; Z79.82 Long term (current) use of aspirin
CPT/HCPCS: 93005; 99284